=== PATIENT | female | born 1975 | race Caucasian/White ===

== ENCOUNTER 2017-11-28 14:15 | Emergency (ER) | payer SELFPAY ==
--- NOTE | 2017-11-28 14:47 | ED Physician Documentation ---
General Adult - HISTORIAN Historian: spouse - HPI Chief Complaint: Altered Mental Status Additional Information: Diagnosed with lung cancer 1 1/2 years ago. Was found to be metastatic in the right breast breast but no primary site was identified. Was advised that no good treatment was available. No treatment was advised, told that she had about 6 months to live. Has been having some swelling that is generalized for about two weeks. Has an open wound on the right breast from the cancer. Has been having some episodes of mental confusion for the last week. Seems to be getting worse. Is concerned about possible infection. Further information from PCP: Small cell neuroendorine tumor diagnoses at the [facility]. Last seen by PCP was in Aug and appeared to be stable at that time. No AHCD on file. Onset: days ago Timing: still present, worse - PAST HX Allergies/Adverse Reactions: Allergies Allergy/AdvReac Type Severity Reaction Status Date / Time Penicillins Allergy Verified 11/28/17 14:34 Home Medications: Ambulatory Orders Medication Instructions Recorded Potassium Chloride [Klor-Con M20] 20 meq PO BID #60 tab.er.prt 11/28/17 Progress - Progress Progress: 15:42 Patient is responding better at this time. Is answering questions more appropriately, is still confused, orientated x1 18:04 Patient is much better, Ox3 answering questions appropriately. I continue advise patient to be seen at [facility] but continues ot refuse. 19:23 Patient resting quietly, no complaints 20:49 Stable General Adult Physical Exam - PHYSICAL EXAM GENERAL APPEARANCE: patient is wake but is not following commands EENT: eye inspection normal, ENT inspection normal. No: pharynx normal (not able to visualized due to patient not cooperating) NECK: normal inspection, supple RESPIRATORY: no resp distress, chest non-tender, rhonchi (few on the right). No : wheezes, rales CVS: reg rate & rhythm, heart sounds normal, no gallop, murmur (grade 2/6) ABDOMEN: soft, normal bowel sounds, no abdominal bruit, no distension, non- tender EXTREMITIES: edema (2 plus bilaterl) NEURO: CN's nml as tested, motor nml, sensation nml, other (GCS 12/15 on admission). 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 Have a potassium level drawn in the AM at hospital. Follow-up with Dr Zavala. Condition: Stable Decision to Admit: [id number] Date of Decison to Admit: 11/28/17 Decision Time: 15:32
[2017-11-28 15:29] LABS: BASOPHILS % 0.2 (0.0-1.5); EOSINOPHILS % 0.1 % (0.0-6.8); MEAN CORPUSCULAR HEMOGLOBIN 26.9 pg (28.0-34.0); MONOCYTES % 3.2 % (0.0-11.0); NEUTROPHILS # 7.5 # k/uL (1.4-7.7)
[2017-11-28 15:46] LABS: APPEARANCE,URINE CLEAR (CLEAR); COLOR,URINE YELLOW (YELLOW); OCCULT BLOOD,URINE NEGATIVE (NEGATIVE); UROBILINOGEN URINE 0.2 Eu (0.2-1.0)
[2017-11-28 16:23] LABS: eGFR (African) > 60; eGFR (Non-African) > 60
[2017-11-28] MEDS ORDERED: 0.9 % SODIUM CHLORIDE 1,000 ML IV ONE (17:11)
[2017-11-28] MEDS ORDERED: POTASSIUM CHLORIDE 40 MEQ/NS 1,000 ML IV ONE (17:12)
[2017-11-28] MEDS: 0.9 % SODIUM CHLORIDE 1,000 ML with POTASSIUM CHLORIDE 40 MEQ IV SCH ×4 (17:21→22:38)
[2017-11-28] MEDS ORDERED: POTASSIUM CHLORIDE 20 MEQ TABLET.ER ONE (17:24)
[2017-11-28] MEDS ORDERED: POTASSIUM CHLORIDE 10 MEQ TABLET.ER PO ONE (17:25)
[2017-11-28 22:38] VITALS: BP 113/59
== END 2017-11-28 22:30 | disposition home or self-care (01) ==
LOC: ED 14:15
DX: C44.90 Unspecified malignant neoplasm of skin, unspecified (principal); C7B.8 Other secondary neuroendocrine tumors; E87.6 Hypokalemia
CPT/HCPCS: 80053; 81002; 83605; 84703; 85025; 87040; J3480; J7030; 96361; 96374; 99284; S1016

== ENCOUNTER 2017-11-29 12:08 | Outpatient (CLI) | payer OTHER ==
[2017-11-28 22:38] VITALS: BP 113/59
[2017-11-29 13:16] LABS: eGFR (African) > 60; eGFR (Non-African) > 60
== END 2017-11-29 12:10 ==
LOC: LAB 12:08
PROVIDERS: ATTEND Family Medicine
DX: E87.6 Hypokalemia (principal)
CPT/HCPCS: 36415; 80053

== ENCOUNTER 2017-11-30 08:13 | Outpatient (CLI) | payer OTHER ==
[2017-11-30 09:08] LABS: eGFR (African) > 60; eGFR (Non-African) > 60
== END 2017-11-30 08:14 ==
LOC: LAB 08:13
PROVIDERS: ATTEND Family Medicine
DX: E87.6 Hypokalemia (principal)
CPT/HCPCS: 36415; 80048

== ENCOUNTER 2017-11-30 23:20 | Emergency (ER) | payer OTHER ==
[2017-11-30] MEDS: 0.9 % SODIUM CHLORIDE 500 ML IV ONE (23:50)
[2017-11-30] MEDS: LORazepam 2 MG/ML VIAL IVP ONE (23:52)
[2017-11-30] MEDS: LORazepam 2 MG/ML VIAL ONE (23:55)
[2017-12-01] MEDS: MAGNESIUM OXIDE 400 MG TABLET PO STA (00:05)
[2017-12-01 00:14] LABS: BASOPHILS % 0.1 (0.0-1.5); EOSINOPHILS % 0.1 % (0.0-6.8); MEAN CORPUSCULAR VOLUME 83.5 fl (80.0-100.0); MONOCYTES % 3.1 % (0.0-11.0); NEUTROPHILS # 12.7 # k/uL (1.4-7.7)
[2017-12-01] MEDS: MAGNESIUM SULFATE 1 GM in DEXTROSE 5 % IN WATER 100 ML IV STA ×2 (00:22)
[2017-12-01 00:29] LABS: eGFR (African) > 60; eGFR (Non-African) > 60
[2017-12-01] MEDS: MAGNESIUM SULFATE/D5W 100 ML IV ONE (00:35)
[2017-12-01] MEDS: POTASSIUM CHLORIDE 20 MEQ TABLET.ER PO ONE (00:45)
[2017-12-01] MEDS ORDERED: POTASSIUM CHLORIDE IV ONE (01:10)
--- NOTE | 2017-12-01 01:52 | ED Physician Documentation ---
General Adult - HISTORIAN Historian: patient - HPI Stated Complaint: mental status change Chief Complaint: General Adult Onset: hours Timing: still present Severity: moderate Further Comments: yes (Pt os a 42 yo female dx'd with lung cancer 1.5 yrs ago, with metastasis to the R breast. Pt was told that no good treatment was available. Pt has been having generalized swelling for 2 weeks. She has lower extemity edema. Pt has an open wound of her R breast from the cancer. Pt was dx'd with small cell neuroendocrine tumor at [facility]. Pt was seen here 2 days ago with similar presentation and with hypokalemia. Pt was tx'd with potassium supplements in ER. Pt will not allow herself to be transferred to . [facility] for a higher level of care. Pt is from a latter-day family and prefers to trust in God, she says. On presentation pt is confused and disoriented.) - ROS CONST: other (pt is confused and cannot give reliable ros) MS/SKIN/LYMPH: ankle swelling NEURO/PSYCH: other (confusion) - PAST HX Past History: other (cancer, C-sec) Allergies/Adverse Reactions: Allergies Allergy/AdvReac Type Severity Reaction Status Date / Time Penicillins Allergy Verified 12/01/17 00:03 adhesive AdvReac Rash Verified 12/01/17 00:03 Home Medications: Ambulatory Orders Medication Instructions Recorded Potassium Chloride [Klor-Con M20] 20 meq PO BID #60 tab.er.prt 11/28/17 - SOCIAL HX Smoking History: non-smoker - FAMILY HX Family History: No - VITAL SIGNS Vital Signs: Vital Signs Temp Pulse Resp BP Pulse Ox 96 H 16 134/62 99 11/30/17 23:20 11/30/17 23:20 11/30/17 23:20 11/30/17 23:20 - REVIEWED ASSESSMENTS Nursing Assessment Reviewed: Yes Vitals Reviewed: Yes Progress - Progress Progress: NS 500 cc IVF 1 gm MgSO4 IV Kdur 40 mEq po sensorium improved, pt appears alert and oriented. Strongly encouraged pt to be seen in [place], but pt does not wish to do this. magnesium levels pending Will replete potassium; pt will f/u with pcp tomorrow. NS 1000 cc with 40 mEq KCL over 4 hrs - EKG/XRAY/CT EKG: NSR (HR=88; LVH by voltage criteria) ED Results Lab/Radiology - Lab Results Lab Results: Lab Results 11/30/17 11/30/17 11/30/17 12:00 12:00 12:00 WBC 14.20 K/ul H K/ul (4.00-12.00) RBC 3.05 M/ul L M/ul (3.90-5.20) Hgb 8.2 g/dL L g/dL (12.0-16.0) Hct 25.5 % L % (34.5-46.5) MCV 83.5 fl fl (80.0-100.0) MCH 27.0 pg L pg (28.0-34.0) MCHC 32.3 g/dL g/dL (30.0-36.0) RDW 13.5 % % (11.3-14.3) Plt Count 346 K/mm3 K/mm3 (130-400) Neut % (Auto) 89.1 % H % (39.0-79.0) Lymph % (Auto) 6.7 % L % (16.0-50.0) [place] % (Auto) 3.1 % % (0.0-11.0) Eos % (Auto) 0.1 % % (0.0-6.8) Baso % (Auto) 0.1 (0.0-1.5) Neut # (Auto) 12.7 # k/uL H # k/uL (1.4-7.7) Lymph # (Auto) 1.0 # k/uL # k/uL (0.6-4.0) [place] # (Auto) 0.4 # k/uL # k/uL (0.0-0.9) Eos # (Auto) 0.0 # k/uL # k/uL (0.0-0.6) Baso # (Auto) 0.0 # k/uL # k/uL (0.0-0.5) Reactive Lymphs % 0.9 % % (0.0-5.0) Reactive Lymphs # 0.1 # k/uL # k/uL (0.0-0.8) Sodium 137 mmol/L mmol/L (136-145) Potassium 2.0 mmol/L L* mmol/L (3.5-5.1) Chloride 89 mmol/L L mmol/L (98-107) Carbon Dioxide 39 mmol/L H mmol/L (22-30) BUN 7 mg/dL mg/dL (7-17) Creatinine 0.40 mg/dL L mg/dL (0.52-1.04) Estimated Creat Clear 220 Est GFR ( Amer) > 60 (60 - ) Est GFR (Non-Af Amer) > 60 (60 - ) Glucose 138 mg/dL H mg/dL (74-106) Lactate 4.2 U/L H U/L (0.7-2.1) Calcium 8.4 mg/dL mg/dL (8.4-10.2) Total Bilirubin 0.2 mg/dL mg/dL (0.2-1.3) AST 30 U/L U/L (15-46) ALT 39 U/L U/L (13-69) Alkaline Phosphatase 48 U/L U/L (38-126) NT-Pro-B Natriuret Pep 542.1 pg/mL H pg/mL (15.0-125.0) Total Protein 6.4 g/dL g/dL (6.3-8.2) Albumin 3.3 g/dL L g/dL (3.5-5.0) - Orders Orders: ED Orders Category Date Time Status Place IV Lock 1T Care 11/30/17 23:41 Active BNP [NT-proBNP] Stat Lab 11/30/17 12:00 Completed CBC/PLATELET/DIFF Routine Lab 11/30/17 12:00 Completed CMP Routine Lab 11/30/17 12:00 Completed LACTATE Stat Lab 11/30/17 12:00 Completed MAGNESIUM IONIZED Stat Lab 11/30/17 12:20 Received MAGNESIUM Stat Lab 11/30/17 12:20 Received UA [URINALYSIS] Routine Lab 11/30/17 Ordered blood gas [ARTERIAL BLOOD GAS] Stat Lab 12/01/17 00:47 Ordered 0.9 % Sodium Chloride [Normal Saline] 500 ml Med 11/30/17 23:41 Discontinued IV NOW LORazepam [Ativan] Med 11/30/17 23:50 Discontinued 1 mg IVP NOW ONE LORazepam [Ativan] Med 11/30/17 23:50 Discontinued 2 mg .ROUTE .STK-MED ONE Magnesium Oxide [Mag-Oxide] Med 11/30/17 23:58 Discontinued 400 mg PO NOW STA Magnesium Sulfate 1 gm Med 12/01/17 00:02 Discontinued Dextrose 5 % in Water [D5w] 100 ml IV NOW Magnesium Sulfate/D5w [Magnesium-D5w 1 gm/100 ml Soln] Med 12/01/17 00:04 Discontinued 100 ml IV .STK-MED Potassium Chloride 40 Meq/Ns [Potassium 40 Meq/Ns 1000 Med 12/01/17 01:10 Once ml] 1,000 meq IV NOW ONE Potassium Chloride 40 Meq/Ns [Potassium 40 Meq/Ns 1000 Med 12/01/17 01:08 Discontinued ml] 1,000 ml IV .STK-MED Potassium Chloride [Klor-Con M20] Med 12/01/17 00:31 Discontinued 20 meq PO NOW ONE EKG WITH COMPARISON Stat Ther 11/30/17 Ordered General Adult Physical Exam - PHYSICAL EXAM GENERAL APPEARANCE: confused EENT: eye inspection normal, ENT inspection normal NECK: normal inspection, supple RESPIRATORY: no resp distress, chest non-tender, breath sounds normal CVS: reg rate & rhythm, heart sounds normal ABDOMEN: soft, no organomegaly, normal bowel sounds BACK: normal inspection EXTREMITIES: edema (2+) NEURO: motor nml, sensation nml, other (confused) Discharge Clincal Impression: Hypokalemia, transient change in mental status, 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
[2017-12-01] MEDS: POTASSIUM CHLORIDE 40 MEQ/NS 1,000 ML IV ONE (04:20)
[2017-12-01 04:49] LABS: eGFR (African) > 60; eGFR (Non-African) > 60
[2017-12-01 05:18] VITALS: BP 133/74
[2017-12-01 09:35] LABS: APPEARANCE,URINE CLEAR (CLEAR); COLOR,URINE YELLOW (YELLOW); OCCULT BLOOD,URINE NEGATIVE (NEGATIVE); PH URINE 8.5 (5.0 - 8.0); UROBILINOGEN URINE 0.2 Eu (0.2-1.0)
[2017-12-01 17:58] LABS: MAGNESIUM 2.6 mg/dL (1.6-2.6)
[2017-12-03 08:22] LABS: ABG BASE EXCESS 21.2 (-2 - +2); ABG PH 7.58 (7.35-7.45)
== END 2017-12-01 05:15 | disposition home or self-care (01) ==
LOC: ED 23:20
DX: E87.6 Hypokalemia (principal); C34.90 Malignant neoplasm of unspecified part of unspecified bronchus or lung; C79.81 Secondary malignant neoplasm of breast
CPT/HCPCS: 36415; 36600; 80053; 81002; 82803; 83605; 83735; 83880; 85025; 93005; A9270; J2060; J3475; J3480; J7060; 96361; 96365; 96367; 96368; 96375; 99283; S1016

== ENCOUNTER 2017-12-02 07:22 | Outpatient (CLI) | payer OTHER ==
[2017-12-01 05:18] VITALS: BP 133/74
[2017-12-02 08:06] LABS: eGFR (African) > 60; eGFR (Non-African) > 60
== END 2017-12-02 07:23 ==
LOC: LAB 07:22
PROVIDERS: ATTEND Family Medicine
DX: E87.6 Hypokalemia (principal)
CPT/HCPCS: 36415; 80048

== ENCOUNTER 2017-12-03 09:10 | Observation (INO) | payer OTHER ==
--- NOTE | 2017-12-03 09:59 | ED Physician Documentation ---
General Adult - HISTORIAN Historian: patient, spouse - HPI Stated Complaint: delirium Chief Complaint: General Adult Additional Information: 42 yo white female who has been diagnosed with small cell neuroendocrine tumor. Primary felt to be from the lung. She has a large metastatic tumor to the right breast with an open wound. Patient has refused any treatment for her cancer since her diagnoses. Patient has been to the ED twice in the last week for mental confusion. During both visits patient's mental status cleared and returned to baseline. She has been found to be extremely hypokalemic wit K at 1.8. She has been started on K supplement of KCL 20meq TID. Last K level was 2.4. Patient has had Mg level checked and it was normal at 2.6. Patient has refused a CT scan of the head. Patient is being followed by Dr Paulino. Family reports that this AM patient became agitated and combative with her care. These episodes seem to be getting more frequent and and severe. Patient denies having any headaches or neuro deficits at this time. She denies any pain at this time. Onset: other Timing: still present Severity: mild - ROS CONST: no problems. denies: fever, chills EYES/ENT: none CVS/RESP: none GI/: none, other (appetite has been fair) NEURO/PSYCH: denies: headache, fainting, dizziness, numbness, difficulty walking , difficulty with speech - PAST HX Past History: other (small cell neuroendocrine tumor -stage 4) Other History: none Surgeries/Procedures: none Immunizations: referred to PCP Allergies/Adverse Reactions: Allergies Allergy/AdvReac Type Severity Reaction Status Date / Time Penicillins Allergy Verified 12/03/17 09:25 adhesive AdvReac Rash Verified 12/03/17 09:25 Home Medications: Ambulatory Orders Medication Instructions Recorded Potassium Chloride [Klor-Con M20] 20 meq PO BID #60 tab.er.prt 11/28/17 Alprazolam [Xanax] 0.5 mg PO Q6 #10 tablet 12/03/17 Potassium Chloride [Klor-Con M20] 20 meq PO TID #120 tab.er.prt 12/03/17 Spironolactone [Aldactone] 25 mg PO DAILY #30 tablet 12/03/17 - SOCIAL HX Smoking History: non-smoker Alcohol Use: none Drug Use: none - FAMILY HX Family History: No - VITAL SIGNS Vital Signs: Vital Signs Temp Pulse Resp BP Pulse Ox 98.8 F 72 19 104/44 94 12/03/17 09:22 12/03/17 09:22 12/03/17 09:22 12/03/17 09:22 12/03/17 09:22 - REVIEWED ASSESSMENTS Nursing Assessment Reviewed: Yes Vitals Reviewed: Yes Progress - Progress Progress: 11:04 patient seems to be more mentally alert but is still confused. 12:34 stable 13:17 IV infusing doing well 14:45 I have talked with Dr Ness about patient, will get labs as order and start Aldactone 16:01 Will admit to observation since patient does not seem to be clearing her mental confusion. Family still refuses CT scan of the head at this time. ED Results Lab/Radiology - Orders Orders: ED Orders Category Date Time Status CBC/PLATELET/DIFF Routine Lab 12/03/17 Ordered CMP Routine Lab 12/03/17 Ordered General Adult Physical Exam - PHYSICAL EXAM GENERAL APPEARANCE: mild distress EENT: eye inspection normal, ENT inspection normal, pharynx normal, no signs of dehydration NECK: normal inspection, thyroid normal, supple. No: lymphadenopathy, stiff neck RESPIRATORY: no resp distress, chest non-tender, breath sounds normal. No: wheezes, rales, rhonchi CVS: reg rate & rhythm, heart sounds normal, equal pulses, no gallop, murmur ABDOMEN: soft, no organomegaly, normal bowel sounds, no abdominal bruit, no distension, non-tender BACK: normal inspection SKIN: warm/dry, other (large ulcerative mass to the right breast) EXTREMITIES: non-tender, normal range of motion NEURO: CN's nml as tested, motor nml, sensation nml, mood/affect nml. No: oriented X3, cognition normal (confusedorientated x2) Discharge Clincal Impression: Neuroendocrine carcinoma of unknown origin, Hypokalemia Condition: Stable Disposition: 01 HOME, SELF-CARE Decision to Admit: [id number] Date of Decison to Admit: 12/03/17 Decision Time: 15:02
[2017-12-03 11:24] LABS: BASOPHILS % 0.1 (0.0-1.5); EOSINOPHILS % 0.1 % (0.0-6.8); MEAN CORPUSCULAR HEMOGLOBIN 27.2 pg (28.0-34.0); MEAN CORPUSCULAR VOLUME 83.1 fl (80.0-100.0); MONOCYTES % 3.6 % (0.0-11.0); NEUTROPHILS # 7.7 # k/uL (1.4-7.7); eGFR (African) > 60; eGFR (Non-African) > 60
[2017-12-03] MEDS ORDERED: POTASSIUM CHLORIDE 20 MEQ TABLET.ER PO ONE (11:25)
[2017-12-03] MEDS: 0.9 % SODIUM CHLORIDE 1,000 ML with POTASSIUM CHLORIDE 40 MEQ IV SCH ×4 (11:38→21:05)
[2017-12-03 16:15] LABS: APPEARANCE,URINE CLOUDY (CLEAR); COLOR,URINE YELLOW (YELLOW)
[2017-12-03 16:16] LABS: OCCULT BLOOD,URINE NEGATIVE (NEGATIVE); PH URINE 8.5 (5.0 - 8.0); UROBILINOGEN URINE 0.2 Eu (0.2-1.0)
[2017-12-03] MEDS ORDERED: ALPRAZOLAM 0.5 MG TABLET PO PRN (18:09)
[2017-12-03] MEDS: SPIRONOLACTONE 25 MG TABLET PO SCH (18:36)
[2017-12-03] MEDS: POTASSIUM CHLORIDE 20 MEQ TABLET.ER PO SCH (18:41)
[2017-12-03 19:07] VITALS: BMI 25.3
[2017-12-03] MEDS ORDERED: POTASSIUM CHLORIDE 40 MEQ/NS 1,000 ML IV ONE (19:25)
[2017-12-04] MEDS ORDERED: POTASSIUM CHLORIDE 40 MEQ/NS 1,000 ML IV ONE ×2 (01:00→05:03)
[2017-12-04 06:46] LABS: eGFR (African) > 60; eGFR (Non-African) > 60
[2017-12-04] MEDS: POTASSIUM CHLORIDE 20 MEQ TABLET.ER PO SCH ×2 (09:17→13:57)
[2017-12-04] MEDS: SPIRONOLACTONE 25 MG TABLET PO SCH (09:17)
--- NOTE | 2017-12-04 09:28 | Discharge Summary ---
Discharge Summary - Discharge Sumary Condition at Discharge: Stable Home Medications: Ambulatory Orders Medication Instructions Recorded Potassium Chloride [Klor-Con M20] 20 meq PO BID #60 tab.er.prt 11/28/17 Alprazolam [Xanax] 0.5 mg PO Q6 #10 tablet 12/03/17 Potassium Chloride [Klor-Con M20] 20 meq PO TID #120 tab.er.prt 12/03/17 Spironolactone [Aldactone] 25 mg PO DAILY #30 tablet 12/03/17 Consultations this Visit: None Procedures this Visit: None Allergies/Adverse Reactions: Allergies Allergy/AdvReac Type Severity Reaction Status Date / Time Penicillins Allergy Verified 12/03/17 09:25 adhesive AdvReac Rash Verified 12/03/17 09:25 Patient Problems: Current Active Problems Problem Status Onset Hypokalemia Acute Mental confusion Acute Neuroendocrine carcinoma of unknown origin Acute small cell neuroendocrine carcinoma Acute stage 4 metastatic cancer Acute Discharge Summary: Patient was started on IV fluids with 40meq of KCL IV. Patient was continued on po potassium supplement. I discussed patient with Dr Woody and he advised patient to be started on spironolactone 25mg daily along with supplemental K. In the ED patient remained some what confused and it was decided to admit her to observation care to try to get her K up better. On the morning of discharge her K was 3.1. Patient seems to be lucent but again she started to have some mild increase confusion. Patient and spouse still did not want to pursue workup for mental confusion. Patient was discharged in stable condition. - Final Diagnosis (1) small cell neuroendocrine carcinoma Problems: Patient does not want any further treatment or workup done at this time. (3) Hypokalemia Problems: Improved (4) Mental confusion Problems: Improved but episodic
[2017-12-04 11:41] VITALS: BP 127/67
--- NOTE | 2017-12-04 17:21 | Discharge Summary ---
Discharge Summary - Discharge Sumary History of Present Illness: 42 yo white female who has been diagnosed with small cell neuroendocrine tumor. Primary felt to be from the lung. She has a large metastatic tumor to the right breast with an open wound. Patient has refused any treatment for her cancer since her diagnoses. Patient has been to the ED twice in the last week for mental confusion. During both visits patient's mental status cleared and returned to baseline. She has been found to be extremely hypokalemic wit K at 1.8. She has been started on K supplement of KCL 20meq TID. Last K level was 2.4. Patient has had Mg level checked and it was normal at 2.6. Patient has refused a CT scan of the head. Patient is being followed by Dr Paulino. Family reports that the AM of admission patient became agitated and combative once again with her care. These episodes seem to be getting more frequent and and severe. Patient denies having any headaches or neuro deficits , denies any pain. On the previous two ED admissions has been advised to be admitted tot [facility] for care but has refused to do so. Patient agreed to be admitted today to try to get her K up. Condition at Discharge: Guarded Home Medications: Ambulatory Orders Medication Instructions Recorded Potassium Chloride [Klor-Con M20] 20 meq PO BID #60 tab.er.prt 11/28/17 Alprazolam [Xanax] 0.5 mg PO Q6 #10 tablet 12/03/17 Potassium Chloride [Klor-Con M20] 20 meq PO TID #120 tab.er.prt 12/03/17 Spironolactone [Aldactone] 25 mg PO DAILY #30 tablet 12/03/17 Allergies/Adverse Reactions: Allergies Allergy/AdvReac Type Severity Reaction Status Date / Time Penicillins Allergy Verified 12/03/17 09:25 adhesive AdvReac Rash Verified 12/03/17 09:25 Patient Problems: Current Active Problems Problem Status Onset Anemia Acute Hyperglycemia Acute Hypokalemia Acute Mental confusion Acute Metabolic alkalosis Acute Neuroendocrine carcinoma of unknown origin Acute small cell neuroendocrine carcinoma Acute stage 4 metastatic cancer Acute Discharge Summary: Patient has been followed by her primary care provider Dr Paulino. Patient was admitted for K replacement. Dr Woody in nephrology was contacted, and he advised starting patient on spironolactone. Patient was continued on IV K and oral K supplement. This AM K was 3.1. Patient has continued to have some waxing/waining of mental confusion. Patient continued to refuse to have any diagnostic studies done to evaluate mental confusion. Today patient had some spontaneous bleeding from the tumor site that was difficult to stop. A surgical stitch was attempted within the ability to pinch the skin due to the hardness of the tumor. Surgicel was applied with pressure with no further hemorrhage. Family is at a lost of how to handle the situation. Patient is still refusing to have most interventional care done. Patient and family was advised to consider being seen in an outpatient clinic for further evaluation and discussion of possible treatment or pallative care. At the time of dismissal patient was not sure if she would go home or go the the ED at the [facility]. i advised that they could be seen in the Ed but I felt there was a good chance she would not be admitted if she is refusing care. - Final Diagnosis (1) small cell neuroendocrine carcinoma Problems: Large breast tumor with ulceration. (3) Hypokalemia Problems: Improved with spironolactone and K supplement (4) Mental confusion Problems: Etiology unknown. Possible stress reaction, metastatic disease. need to have further diagnostic studies which are being refused at this time. (6) Anemia Problems: stable with Hg in low 8s (7) Hyperglycemia Problems: Has been told that she was prediabetic at one time
== END 2017-12-04 18:00 | disposition home or self-care (01) ==
LOC: ED 09:10 → SOUTH 15:30
PROVIDERS: ADMIT Family Medicine; ATTEND Family Medicine
DX: C7A.1 Malignant poorly differentiated neuroendocrine tumors (principal); E87.6 Hypokalemia; R41.0 Disorientation, unspecified; D64.9 Anemia, unspecified; R73.9 Hyperglycemia, unspecified
CPT/HCPCS: 36415; 51701; 80048; 80053; 81002; 82570; 84133; 84300; 85025; A9270; G0378; J3480; J7030; 96360; 96361; 99219; 99235; 99284; S1016